=== PATIENT | male | born 1935 | race Caucasian/White ===

== ENCOUNTER 2016-11-08 10:55 | Day surgery (SDC) | payer MEDICARE ==
[~2016-11-08 10:55] MED LIST: PRED5PAK PO; WARF-23 PO
[2016-11-08] MEDS ORDERED: LACTATED RINGER'S 1000 ML IV SCH (11:45)
[2016-11-08] MEDS ORDERED: INSULIN HUMAN REGULAR 1,000 UNITS/10 ML VIAL SQ PRN (11:45)
[2016-11-08] MEDS ORDERED: SODIUM CHLORID 0.9% 500 ML IV SCH (11:45)
[2016-11-08] MEDS ORDERED: METOPROLOL TARTRATE 25 MG TAB PO PRN (11:45)
[2016-11-08] MEDS ORDERED: MULT400T PO (12:05)
--- NOTE | 2016-11-09 18:58 | EKG ---
Date Performed: 11/08/2016 Time Performed: 11:43:44 PTAGE: 81 years EKG: Probable atrial flutter. Left axis deviation IV conduction defect Possible septal infarct - age undetermined Lateral ST-T changes are nonspecific Poor R wave progression. Abnormal ECG NO PREVIOUS TRACING DOCTOR: Chris Guzman Interpretating Date/Time 11/09/2016 18:57:11
--- NOTE | 2016-11-09 19:00 | EKG ---
Date Performed: 11/08/2016 Time Performed: 14:46:24 PTAGE: 81 years EKG: Sinus rhythm with 1st degree A-V block Consider left atrial abnormality Left axis deviation IV conduction defect Possible septal infarct - age undetermined Lateral ST-T changes are nonspecific When compared to prev ious tracing, rate has changed from Probable atrial flutter to sinus rhythm. Abnormal ECG PREVIOUS TRACING : 11/08/2016 11.43 DOCTOR: Chris Guzman Interpretating Date/Time 11/09/2016 18:58:16
--- NOTE | 2016-11-10 08:20 | MP ---
cc: ADAMARIS POOL HUMAYUN A. M.D. DATE OF SURGERY: 11/08/2016 PROCEDURE: Transesophageal echo INDICATION 1. Mitral regurgitation 2. Rule out left atrial appendage thrombus. 3. Plan for atrial flutter, cardioversion. CONSENT A full informed consent was obtained prior to the procedure. The risks of , bleeding, perforation, aspiration, hemothorax, foreseen and unforeseen complications were reviewed. The patient fully appeared to understand the risks. PROCEDURE The patient was prepped and draped in the usual manner. The patient was anesthetized per the anesthesia department. A full ROLA was performed. FINDINGS 1. The LV function was normal. 2. The interatrial septum is intact. 3. The mitral valve moved normally. There was evidence of 2 to 3+ mitral regurgitation. 4. Tricuspid valve moves normally. 5. The left atrial appendage was free of thrombus. 6. The aorta was visualized to 40 cm with mild plaquing. CONCLUSION No evidence of left atrial appendage thrombus. No evidence of significant thrombus. PLAN Proceed with cardioversion. Alvin Vogt MD, FRCP,FACC JOS/JACK /2:18 PM /8:11 AM
--- NOTE | 2016-11-10 08:24 | MR ---
cc: ALVIN VOGT M.D., JOSE R. M.D. DATE: 11/08/2016 PROCEDURE Cardioversion. INDICATION Atrial flutter. CONSENT Full informed consent was obtained prior to the procedure. The risk of , bleeding, cardiac arrest, foreseen and unforeseen complications were reviewed. The patient appeared to understand the risks. PROCEDURE The patient was prepped and draped in the usual manner. A full ROLA was performed. Following the ROLA the patient received a 50 joules shock which was synchronized and this converted into sinus rhythm. CONCLUSION Successful cardioversion of atrial flutter to sinus rhythm with 50 joules synchronized shock. Alvin Vogt MD, FRCP,[facility] HAJ/TLL /2:20 PM /8:13 AM
== END 2016-11-08 15:25 | disposition home or self-care (01) ==
LOC: HDOC 10:55 → HDIC 10:57 → HDOC 15:25
PROVIDERS: ATTEND Internal Medicine Cardiovascular Disease
DX: I48.92 Unspecified atrial flutter (principal); I34.0 Nonrheumatic mitral (valve) insufficiency
CPT/HCPCS: 92960; 93005; 93312; 93320; 93325

== ENCOUNTER 2017-01-15 11:44 | Inpatient (IN) | payer MEDICARE ==
[~2017-01-15] VITALS: Ht 177.8 cm; Wt 91.8 kg
[2017-01-15] VITALS (8 sets, daily range): BP systolic 122–160; BP diastolic 66–108; PULSE 88–128; RESP 20–22; TEMP 97.4–98.3; O2SAT 95–98
[~2017-01-15 11:44] MED LIST changes: +MULT400T PO
--- NOTE | 2017-01-15 11:50 | PD ---
Physical Exam Date Seen by Provider: January 15, 2017 Time Seen by Provider: 11:48 Narrative 81 year old male presents to the emergency department for evaluation of left sided chest pain and shortness of breath that started 1 week ago. He has history of cardiac bypass surgery. He was sent by Dr. Vogt's office for evaluation. Vital signs reviewed. Patient awaiting bed placement. Data Data Last Documented VS Vital Signs Date Time Temp Pulse Resp B/P Pulse Ox O2 Delivery O2 Flow Rate FiO2 01/15/17 11:47 97.4 107 20 146/68 97 MDM Supervised Visit with GAIL: Varsha Bustamante January 15, 2017 11:50
[2017-01-15] MEDS ORDERED: SODIUM CHLORIDE 0.9% FLUSH 10 ML FLUSH IVF PRN (12:00)
[2017-01-15] MEDS ORDERED: PRED10 PO (12:07)
[2017-01-15] MEDS ORDERED: JANT5TAB PO (12:07)
[2017-01-15] MEDS ORDERED: CART120C PO (12:07)
[2017-01-15] MEDS ORDERED: METO-309 PO (12:07)
[2017-01-15 12:26] LABS: AUTOMATED NEUTROPHIL # 6.2 TH/MM3 (1.8-7.7); BASOPHIL % 0.5 % (0.0-2.0); EOSINOPHIL % 0.3 % (0.0-4.0); HEMATOCRIT 46.7 % (39.0-51.0); LYMPH % 5.7 % (9.0-44.0); LYMPHOCYTE # 0.4 TH/MM3 (1.0-4.8); MEAN CELL VOLUME 89.3 FL (80.0-100.0); MEAN CORPUSCULAR HEMOGLOBIN 28.7 PG (27.0-34.0); MEAN CORPUSCULAR HGB CONC 32.1 % (32.0-36.0); MONO % 8.4 % (0.0-8.0); NEUT % 85.1 % (16.0-70.0); PLATELET COUNT 88 TH/MM3 (150-450); RED BLOOD COUNT 5.23 MIL/MM3 (4.50-5.90); RED CELL DISTRIBUTION WIDTH 14.9 % (11.6-17.2); WHITE BLOOD COUNT 7.3 TH/MM3 (4.0-11.0)
--- NOTE | 2017-01-15 12:26 | PD ---
HPI Chief Complaint: Cardiac Complaint Time Seen by Provider: 12:05 Travel History International Travel<30 days: No Contact w/Intl Traveler<30days: No Traveled to known affect area: No History of Present Illness HPI 81-year-old male with history of HTN, CAD S/P bypass 2014 ON [place] presents to the ED by private vehicle for evaluation of 1 week history of intermittent chest pain and worsening shortness of breath. The patient states the chest pain is sharp, left sided, intermittent, worsened by lying down. He denies accompanying palpitations, diaphoresis, nausea or vomiting. Patient endorses worsening shortness of breath over one week. States that it became "very bad" yesterday. He states that chopping vegetables caused him to become SOB and have to rest. He endorses intermittent cough, productive of yellowish sputum. He denies fever, chills. He's been treating by using his rescue inhaler more frequently with no improvement of symptoms. The patient was seen by his perforator operator Dr. Vogt and instructed to present to the ED for evaluation. PFSH Past Medical History Hx Anticoagulant Therapy: Yes Atrial Fibrillation: Yes Cardiovascular Problems: Yes Diminished Hearing: No Hypertension: Yes Medical other: Yes (chronic skin rash) Respiratory: Yes Influenza Vaccination: Yes Past Surgical History Coronary Artery Bypass Graft: Yes Social History Alcohol Use: No (QUIT DRINKING 2 VODKA DAILY IN June,) Tobacco Use: No Substance Use: No Allergies-Medications (Allergen,Severity, Reaction): Coded Allergies: Iodine (Verified Allergy, Mild, RASH, 01/15/17) Shrimp (Verified Allergy, Mild, RASH, 01/15/17) Reported Meds & Prescriptions Reported Meds & Active Scripts Active Reported Prednisone 10 Mg Tab 10 Mg PO DAILY Cartia Xt (Diltiazem ER 24 HR) 120 Mg Caper 120 Mg PO DAILY Jantoven (Warfarin) 5 Mg Tab 5 Mg PO DAILY Lopressor (Metoprolol Tartrate) 50 Mg Tab 25 Mg PO BID Multaq (Dronedarone) 400 Mg Tab 400 Mg PO BID Review of Systems Except as stated in HPI: all other systems reviewed are Neg Physical Exam Narrative GENERAL: Well-nourished, well-developed, obese white male in no acute distress. SKIN: Focused skin assessment warm/dry. Well healed scar in the midline chest. Patchy, erythematous, maculopapular rash over the abdomen. HEAD: Normocephalic. EYES: No scleral icterus. No injection or drainage. NECK: Supple, trachea midline. No JVD or lymphadenopathy. CARDIOVASCULAR: Irregularly irregular rate and rhythm without murmurs, gallops, or rubs. 2+ DP and radial pulses bilaterally. RESPIRATORY: Breath sounds clear and equal bilaterally. No accessory muscle use. GASTROINTESTINAL: Abdomen soft, non-tender, nondistended. Active bowel sounds. MUSCULOSKELETAL: No cyanosis, or edema. Negative Hohmann sign bilaterally. BACK: Nontender without obvious deformity. No CVA tenderness. Data Data Last Documented VS Vital Signs Date Time Temp Pulse Resp B/P Pulse Ox O2 Delivery O2 Flow Rate FiO2 01/15/17 11:57 98 Room Air 01/15/17 11:56 98.3 94 22 160/93 Orders Complete Blood Count With Diff (01/15/17 11:53) Comprehensive Metabolic Panel (01/15/17 11:53) B-Type Natriuretic Peptide (01/15/17 11:53) Act Partial Throm Time (Ptt) (01/15/17 11:53) Prothrombin Time / Inr (Pt) (01/15/17 11:53) Ckmb (Isoenzyme) Profile (01/15/17 11:53) Troponin I (01/15/17 11:53) Iv Access Insert/Monitor (01/15/17 11:53) Electrocardiogram (01/15/17 11:53) Ecg Monitoring (01/15/17 11:53) Oximetry (01/15/17 11:53) Oxygen Administration (01/15/17 11:53) Chest, Single Ap (01/15/17 11:53) Sodium Chloride 0.9% Flush (Ns Flush) (01/15/17 12:00) CKMB (01/15/17 12:05) CKMB% (01/15/17 12:05) Ventilation & Perfusion Scan (01/15/17 ) Admit Order (Ed Use Only) (01/15/17 13:27) Labs Laboratory Tests Test 01/15/17 12:05 White Blood Count 7.3 TH/MM3 Red Blood Count 5.23 MIL/MM3 Hemoglobin 15.0 GM/DL Hematocrit 46.7 % Mean Corpuscular Volume 89.3 FL Mean Corpuscular Hemoglobin 28.7 PG Mean Corpuscular Hemoglobin 32.1 % Concent Red Cell Distribution Width 14.9 % Platelet Count 88 TH/MM3 Mean Platelet Volume 10.2 FL Neutrophils (%) (Auto) 85.1 % Lymphocytes (%) (Auto) 5.7 % Monocytes (%) (Auto) 8.4 % Eosinophils (%) (Auto) 0.3 % Basophils (%) (Auto) 0.5 % Neutrophils # (Auto) 6.2 TH/MM3 Lymphocytes # (Auto) 0.4 TH/MM3 Monocytes # (Auto) 0.6 TH/MM3 Eosinophils # (Auto) 0.0 TH/MM3 Basophils # (Auto) 0.0 TH/MM3 CBC Comment AUTO DIFF Differential Comment AUTO DIFF CONFIRMED Platelet Estimate LOW Platelet Morphology Comment NORMAL Prothrombin Time 25.6 SEC Prothromb Time International 2.2 RATIO Ratio Activated Partial 32.3 SEC Thromboplast Time Sodium Level 137 MEQ/L Potassium Level 4.2 MEQ/L Chloride Level 101 MEQ/L Carbon Dioxide Level 24.5 MEQ/L Anion Gap 12 MEQ/L Blood Urea Nitrogen 16 MG/DL Creatinine 1.28 MG/DL Estimat Glomerular Filtration 54 ML/MIN Rate Random Glucose 115 MG/DL Calcium Level 9.3 MG/DL Total Bilirubin 1.5 MG/DL Aspartate Amino Transf 49 U/L (AST/SGOT) Alanine Aminotransferase 68 U/L (ALT/SGPT) Alkaline Phosphatase 82 U/L Total Creatine Kinase 132 U/L Creatine Kinase MB 4.4 NG/ML Troponin I 0.11 NG/ML B-Type Natriuretic Peptide 341 PG/ML Total Protein 7.8 GM/DL Albumin 4.0 GM/DL MDM Medical Decision Making Medical Screen Exam Complete: Yes Emergency Medical Condition: Yes Medical Record Reviewed: Yes Differential Diagnosis PE versus ACS versus pneumonia versus CHF versus other Narrative Course 81-year-old male with history of HTN, CAD S/P bypass 2014, A flutter with cardioversion on 11/08/16 [place] presents to the ED by private vehicle for evaluation of 1 week history of intermittent chest pain and worsening shortness of breath. The patient states the chest pain is sharp, left sided, intermittent , worsened by lying down. He denies accompanying palpitations, diaphoresis, nausea or vomiting. Patient endorses worsening shortness of breath over one week. States that it became "very bad" yesterday. He states that chopping vegetables caused him to become SOB and have to rest. He endorses intermittent cough, productive of yellowish sputum. He denies fever, chills. The patient was seen today by Dr. Vogt and instructed to present to the ED for evaluation. Vitals reviewed. Pulse 107, respiratory rate 20, saturation 97% on room air on presentation. Physical exam reveals an obese white male with some increased work of breathing but otherwise in no acute distress. There is a patchy maculopapular rash on the abdomen, patient is currently treating with diet modifications and steroids. Irregularly irregular rate with no appreciable M/R/G. Chest CTAB. No lower extremity edema. Homans sign negative bilaterally. IV was established. Patient was placed on continuous monitoring. EKG: rate 93, A. fib, LAD, Q waves in V1 and V2, similar to previous EKG of . Reviewed by Dr. Nair CXR: Cardiomegaly and mild CHF. Cardiac enzymes CK-MB 4.4. Troponin 0.11. CBC: WBC 7.3. Hemoglobin 15.0. CMP: Potassium 4.2. INR 2.2. BNP: 341. Patient was administered 40 mg Lasix IV. This is mild failure with elevated cardiac enzymes. He is allergic to iodine, VQ scan pending to rule out PE. Call placed to the [facility] Hospitalist. I spoke with Dr. Randle who agrees to accept the patient to the medicine service. Please see medicine and cardiac notes for disposition. Diagnosis Primary Impression: CHF (congestive heart failure) Qualified Code: I50.9 - Acute congestive heart failure, unspecified congestive heart failure type Additional Impression: Cardiac enzymes elevated Lorie Fraire January 15, 2017 12:25
[2017-01-15 12:28] LABS: APTT (PATIENT) 32.3 SEC (24.3-30.1); INTERNATIONAL NORMALIZED RATIO 2.2 RATIO; PROTHROMBIN TIME - PATIENT 25.6 SEC (9.8-11.6)
[2017-01-15 12:29] LABS: HEMO FLAGS AUTO DIFF
--- NOTE | 2017-01-15 12:29 | RADRPT ---
EXAM DATE/TIME: 01/15/2017 11:59 [facility] COMPARISON: No previous studies available for comparison. INDICATIONS : Left side chest pain and shortness of breath for 1 week. MEDICAL HISTORY : Cardiovascular disease. Anticoagulant therapy. SURGICAL HISTORY : CABG. Coronary artery stent. ENCOUNTER: Initial ACUITY: 1 week PAIN SCORE: 6/10 LOCATION: Left chest FINDINGS: Sternal wires from previous median sternotomy are noted. The heart is enlarged. Mild interstitial e jeffrey is present. There is no alveolar consolidation, pleural effusion or pneumothorax. CONCLUSION: Cardiomegaly with mild congestive failure. Ras Chavez MD FACR on January 15, 2017 at 12:20 Board Certified Radiologist. This report was verified electronically.
[2017-01-15 12:42] LABS: ANION GAP 12 MEQ/L (5-15); AST (GOT) 49 U/L (15-37); BICARBONATE 24.5 MEQ/L (21.0-32.0); BLOOD UREA NITROGEN 16 MG/DL (7-18); CHLORIDE 101 MEQ/L (98-107); GLOMERULAR FILTRATION RATE 54 ML/MIN (>89); POTASSIUM 4.2 MEQ/L (3.5-5.1); SODIUM (NA) 137 MEQ/L (136-145)
[2017-01-15 12:47] LABS: ALKALINE PHOSPHATASE 82 U/L (45-117); ALT (GPT) 68 U/L (12-78); CREATINE KINASE 132 U/L (39-308); TOTAL BILIRUBIN ADULT 1.5 MG/DL (0.2-1.0)
[2017-01-15 12:59] LABS: CKMB 4.4 NG/ML (0.5-3.6)
[2017-01-15 13:00] LABS: PLATELET ESTIMATE SMEAR LOW (NORMAL); PLATELET MORPHOLOGY NORMAL (NORMAL); SCAN/DIFF AUTO DIFF CONFIRMED
[2017-01-15] MEDS ORDERED: SODIUM CHLORIDE 0.9% FLUSH 10 ML FLUSH IV FLUSH PRN (14:00)
--- NOTE | 2017-01-15 15:54 | RADRPT ---
EXAM DATE/TIME: 01/15/2017 15:00 [facility] COMPARISON: No previous studies available for comparison. INDICATIONS : Left chest pain with dyspnea. DOSE: 1.1 mCi Tc99m MAA IV 32 mCi Tc99m DTPA aerosol MEDICAL HISTORY : Hypertension. Atrial fibrillation. SURGICAL HISTORY : CABG Carotid endarterectomy. Coronary artery stent. ENCOUNTER: Initial ACUITY: 1 week PAIN SCALE: 3/10 LOCATION: Left chest TECHNIQUE: Following five minutes of tidal breathing of DTPA aerosol, planar images of the lungs were performed in eight projections. The patient was then injected with MAA, and eight-view perfusion scan was perf ormed. FINDINGS: There is moderate central airway deposition of aerosolized tracer. The perfusion lung scan demonstrates a homogenous pattern of uptake in both lungs. No segmental or s ubsegmental defects are seen. CONCLUSION: Low probability for pulmonary embolism. Marked central airway tracer deposition sugg esting ventilatory defect. Ras Chavez MD FACR on January 15, 2017 at 15:51 Board Certified Radiologist. This report was verified electronically.
[2017-01-15] MEDS ORDERED: WARFARIN SOD 5 MG TAB PO SCH (16:00)
--- NOTE | 2017-01-15 16:30 | MH ---
cc: ALONDRA RANDLE DATE OF ADMISSION 01/15/2017 DATE OF [address] Alondra Randle. PRIMARY CARE PHYSICIAN Dr. Benavidez. REASON FOR ADMISSION Shortness of breath. HISTORY OF THE PRESENT ILLNESS The patient is very pleasant 81-year-old male with significant past medical history of hypertension, CAD status post bypass 2014, also history of atrial fibrillation on Coumadin. As per patient and the patient's the patient has shortness of breath for the past few days. He has had intermittent chest pain from about one week. His shortness of breath is getting worse. Chest pain is kind of mild to moderate in intensity, sharp type left-sided without any associated symptoms. It is intermittent and nonradiating. His shortness of breath is also from approximately 5-7 days and it is getting worse. And whenever he tries to walk around it gets worse. When sitting down and laying it is better. Even some exception is causing his shortness of breath. He has occasional cough with yellowish kind of sputum. But there is no blood in it. He has no fever, no chills. No nausea or vomiting. There is no back pain or any abdominal pain. Denies any dizziness or lightheadedness. The patient denies any other associated symptoms. The patient went to his clinical research specialist this morning. Because of the symptomatology clinical research specialist advised him to go to the ER. In the ER he was evaluated by the ER PA and recommended for admission because of the acute congestive heart failure with atrial fibrillation and at times rapid ventricular rate. PAST MEDICAL HISTORY Significant for: 1. CAD. 2. Hypertension. 3. Status post bypass. 4. Atrial fibrillation / flutter on Coumadin. MEDICATIONS Reviewed. Please see the EMR. ALLERGIES THE PATIENT IS ALLERGIC TO IODINE AND SHRIMP. REVIEW OF SYSTEMS As described above in the history of present illness, otherwise negative for 10 systems. SOCIAL HISTORY The patient quit drinking last year. Does not smoke or do any drugs. FAMILY HISTORY Noncontributory. PHYSICAL EXAMINATION GENERAL: The patient is alert and oriented, overweight, lying on bed without any apparent distress. VITAL SIGNS: Show the patient afebrile. During his examination the patient's heart rate fluctuated from 90s to 130s. Respiratory rate 22, blood pressure was 160/93, pulse oximetry was 98% on room air. HEENT: Head is atraumatic, normocephalic. Eyes, negative conjunctival icterus. Mouth unremarkable. NECK: Supple. The patient is sitting more than 45 degree angle and unable to appreciate JVD because of thick neck. Central trachea. CHEST: Some slight decreased air entry bibasilarly with occasional fine rhonchi, otherwise no wheezing noted. CARDIOVASCULAR: S1-S2 audible. Unable to appreciate any gallop. ABDOMEN: Soft, nontender, no organomegaly. Positive bowel sounds. MUSCULOSKELETAL: No cyanosis noted. There is a trace pedal edema. CENTRAL NERVOUS SYSTEM: Grossly intact. SKIN: Warm and dry. PSYCHIATRIC: Appropriate mood and affect. LABORATORY DATA Investigations, WBC and hematocrit within normal limits. Platelet count is 88. PT is 25.6, INR 2.2, APTT 32.3. Chemistry shows estimated GFR 54, random glucose 115, total bilirubin 1.5, AST 49. CK-MB 4.4. Troponin 0.11. B-type natriuretic peptide is 341. IMAGING Chest x-ray was done. Report showed cardiomegaly with mild CHF. No EKGs available. ASSESSMENT 1. Shortness of breath with some coughing, likely pulmonary edema / CHF acute type. 2. Atrial fibrillation / flutter with at times increased heart rate, rapid ventricular rate. 3. Hypertension. 4. CAD status post CABG in the past. PLAN Admit to the floor. Tele. Diuretics. D-dimer stat. Cardiology consult. Continue home medication as indicated. Follow PT/INR. Pharmacy consult to manage Coumadin and PT/INR. Discussed with Dr. Vogt. Discussed with RN. Discussed with the patient and family at the bedside. Further recommendation to follow as the patient progresses. Condition guarded. ADDENDUM Low platelets, we will monitor. Increased troponin, plan for serial troponin. GI prophylaxis and DVT prophylaxis with Coumadin. Alondra Randle MD JP/LINDA /3:34 PM /3:55 PM
[2017-01-15] MEDS: FUROSEMIDE 20 MG/2 ML VIAL IV PUSH SCH (17:26)
[2017-01-15] MEDS: SODIUM CHLORIDE 0.9% FLUSH 10 ML FLUSH IV FLUSH SCH (20:44)
[2017-01-15] MEDS: FAMOTIDINE 20 MG TAB PO SCH (20:44)
[2017-01-15] MEDS: METOPROLOL TARTRATE 25 MG TAB PO SCH (20:44)
[2017-01-15] MEDS: DRONEDARONE 400 MG TAB PO SCH (20:45)
--- NOTE | 2017-01-15 22:40 | MB ---
cc: ALVIN VOGT M.D., JOSE R. M.D. DATE OF CONSULTATION 01/15/2017 REASON FOR CONSULTATION Thank you Dr. Randle for asking us to see this very pleasant 81-year-old male who presents with atrial fibrillation. He is currently on Coumadin. He presents with increasing shortness of breath on exertion and intermittent chest pain. He had sharp pain, left-sided, which is worse with taking a deep breath. He has been ruled out for pulmonary embolism or pneumonia. He is feeling better after he got diuresis. PAST MEDICAL HISTORY Positive for: 1. Hypertension. 2. Coronary artery disease status post bypass. 3. Atrial fibrillation with flutter. MEDICATIONS At this time include: 1. Diltiazem. 2. Prednisone. 3. Sodium chloride 4. Multaq. 5. Metoprolol. 6. Famotadine. 7. Furosemide. 8. Warfarin. ALLERGIES ALLERGIC TO IODONE. REVIEW OF SYSTEMS Denies seizure, headache, vomiting, diarrhea, dysuria and hematuria. The remainder of the 12 point review of systems is negative. SOCIAL HISTORY Quit alcohol drinking last year. Does not smoke or abuse drugs. FAMILY HISTORY Noncontributory. REVIEW OF SYSTEMS Positive for shortness of breath and above. The remainder of a 12 point review of systems is negative. PHYSICAL EXAMINATION VITAL SIGNS: Pulse was 107, respiratory rate 20, blood pressure 140/68. HEENT: Eyes show no xanthelasma. Mouth shows no cyanosis or pallor. NECK: Showed no JVD. HEART: He had two heart sounds. No murmurs. CHEST: Showed decreased air entry with wheezes and scattered rales. ABDOMEN: Soft. EXTREMITIES: Legs reveal no evidence of edema. NEUROLOGIC: . LABORATORY DATA EKG showed A fib with rapid ventricular response. INR 2.2. PT 25.6. Troponin 0.011. BNP was elevated at 341. IMAGING A chest x-ray showed mild congestive heart failure. Lung V/Q scan was low probability for pulmonary embolism. ASSESSMENT/PLAN 1. 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 2. He will be discharged in the next day or two once stable. I will follow him up in my office on an outpatient basis. Thank you Dr. Randle for asking us to see this very pleasant gentleman. Alvin Vogt MD, FRCP,[facility] HAJ/KK /6:28 PM /10:21 PM [facility]
[2017-01-16] VITALS (7 sets, daily range): BP systolic 120–140; BP diastolic 61–80; PULSE 60–108; RESP 19–21; TEMP 97.4–98.1; O2SAT 94–96
[2017-01-16 06:25] LABS: INTERNATIONAL NORMALIZED RATIO 2.5 RATIO; PROTHROMBIN TIME - PATIENT 28.4 SEC (9.8-11.6)
[2017-01-16 06:53] LABS: POTASSIUM 3.5 MEQ/L (3.5-5.1)
[2017-01-16] MEDS: RESP: ALBUTEROL 2.5 MG/3 ML NEB (SCH) INH ×3 (07:53→20:00)
[2017-01-16] MEDS ORDERED: predniSONE 10 MG TAB PO SCH (09:00)
[2017-01-16] MEDS: METOPROLOL TARTRATE 25 MG TAB PO SCH ×2 (09:32→20:18)
[2017-01-16] MEDS: FAMOTIDINE 20 MG TAB PO SCH ×2 (09:32→20:18)
[2017-01-16] MEDS: DILTIAZEM-CD 120 MG CAP ER PO SCH (09:32)
[2017-01-16] MEDS: DRONEDARONE 400 MG TAB PO SCH (09:32)
[2017-01-16] MEDS: FUROSEMIDE 20 MG/2 ML VIAL IV PUSH SCH ×2 (09:34→17:47)
[2017-01-16] MEDS: SODIUM CHLORIDE 0.9% FLUSH 10 ML FLUSH IV FLUSH SCH ×2 (09:35→20:19)
--- NOTE | 2017-01-16 12:35 | HHI.PR ---
Subjective Subjective Remarks sob improved, still with QUINONEZ no cp diuresing well no fever (Pat Garay) Review of Systems Constitutional Constitutional Remarks 12 point ROS completed, negative except as noted above (Pat Garay) Vitals/Results Intake & Output 01/15/17 01/15/17 01/16/17 15:00 23:00 07:00 Intake Total 480 ml Output Total 1600 ml Balance -1120 ml Intake Oral 480 ml Output Urine Total 1600 ml # Voids 1 # Bowel Movements 0 Vital Signs Vital Signs Date Time Temp Pulse Resp B/P Pulse Ox O2 Delivery O2 Flow Rate FiO2 01/16/17 11:50 108 01/16/17 08:00 98.1 94 20 134/61 95 01/16/17 07:15 Room Air 01/16/17 05:51 97.4 64 21 122/69 95 01/16/17 00:14 97.5 60 19 120/80 96 01/15/17 20:33 98.1 120 21 122/66 95 01/15/17 20:00 Room Air 01/15/17 20:00 128 01/15/17 19:47 132/82 01/15/17 18:05 Room Air 01/15/17 16:58 97.9 88 20 149/92 96 01/15/17 16:23 97 20 142/108 96 Room Air (Pat Garay) CBC/BMP: 01/15/17 1205 01/16/17 0515 Lab Results Laboratory Tests Test 01/15/17 01/16/17 01/16/17 18:40 02:10 05:15 Troponin I 0.12 NG/ML 0.15 NG/ML Prothrombin Time 28.4 SEC Prothromb Time International 2.5 RATIO Ratio Sodium Level 139 MEQ/L Potassium Level 3.5 MEQ/L Chloride Level 103 MEQ/L Carbon Dioxide Level 26.0 MEQ/L Anion Gap 10 MEQ/L Blood Urea Nitrogen 16 MG/DL Creatinine 1.15 MG/DL Estimat Glomerular Filtration 61 ML/MIN Rate Random Glucose 79 MG/DL Calcium Level 8.5 MG/DL (Pat Garay) Physical Exam General General Appearance: Well Developed, Well Nourished, No Acute Distress, Comfortable (Pat Garay) Eyes Eye Exam: Pupils Equal, Pupils Reactive (Pat GarayP) Ears & Nose Ears & Nose Exam: Nasal Mucosa [place] (Pat Garay STUDIO RECEPTIONIST) Throat Throat Exam: Oral Mucosa [place] & Moist (Pat Garay STUDIO RECEPTIONIST) Neck Neck Exam: Neck Supple, Trachea Midline (Pat Garay STUDIO RECEPTIONIST) Pulmonary Resp Exam: Breath Sounds Equal, Decreased Bases (Pat Garay STUDIO RECEPTIONIST) Cardiology CV Exam: Regular, Good Perfusion (Pat GarayP) Gastrointestinal/Abdomen GI Exam: Soft, Non-Tender, Bowel Sounds Present, Non-Distended (Pat GarayP) Musculoskeletal MS Exam: Joints Intact (Pat Garay) Integumentary Skin Exam: Warm, Dry (Pat Garay) Extremeties Extremities Exam: No Edema, Pedal Pulses Palpable (Pat Garay) Neurologic Neuro Exam: Alert, Awake, Oriented, Speech Clear, Moving All Extremities, No Focal Deficits (Pat GarayP) Psychiatric Psych Exam: Appropriate Responses (Pat Garay) VTE Prophylaxis VTE Prophylaxis Meds: Coumadin (Pat Garay) Assessment/Plan Problem List: (1) CHF (congestive heart failure) (2) Cardiac enzymes elevated (3) Atrial fibrillation (4) HTN (hypertension) (5) Peripheral neuropathy (6) Rash (7) CAD (coronary artery disease) Assessment/Plan appreciate cardiology input cardiac enzymes indeterminate continue Lasix 20 mg IV BID, diuresing well continue CCB and BB dc Multaq no longer taking continue Coumadin INR therapeutic continuous telemetry Low platelets, monitor no bleeding on chronic steroids x 2 months for rash dec. Prednisone to 5 mg po daily Replace K, add daily dose Poss dc tomorrow D/W RN D/W Dr. Randle D/W pt This patient was seen by myself and Dr. Randle, this note is written on his behalf. (Pat Garay) Assessment/Plan Patient seen and examined as above Labs and medications and previous notes reviewed Discussed with STUDIO RECEPTIONIST about about plan of care Discussed with patient and at bedside Appreciate consultants help Discussed with RN (Indira Randle MD) Problem Qualifiers (1) CHF (congestive heart failure): Qualified Code: I50.9 - Acute congestive heart failure, unspecified congestive heart failure type (2) Atrial fibrillation: Qualified Code: I48.2 - Chronic atrial fibrillation (3) HTN (hypertension): Qualified Code: I10 - Essential hypertension (4) Peripheral neuropathy: Qualified Code: G62.9 - Peripheral polyneuropathy (5) CAD (coronary artery disease): Qualified Code: I25.10 - Coronary artery disease involving [place] coronary artery of [place] heart without angina pectoris Pat Garay January 16, 2017 12:35 Indira Randle MD January 16, 2017 15:42
--- NOTE | 2017-01-16 13:44 | PD.CARD.PN ---
Subjective Subjective Remarks Better but still somewhat sob Objective Medications Administered Medications Medications (Trade) Dose Ordered Sig/Belinda Route PRN Reason Start Time Stop Time Status Last Admin Dose Admin Sodium Chloride (NS Flush) 2 ml BID IV FLUSH 01/15/17 21:00 01/16/17 09:35 Furosemide (Lasix Inj) 20 mg BID@,18 IV PUSH 01/15/17 18:00 01/16/17 09:34 Diltiazem HCl (Cardizem Cd) 120 mg DAILY PO 01/16/17 09:00 01/16/17 09:32 Metoprolol Tartrate (Lopressor) 25 mg BID PO 01/15/17 21:00 01/16/17 09:32 Famotidine (Pepcid) 20 mg BID PO 01/15/17 21:00 01/16/17 09:32 Vital Signs / I&O Vital Signs Date Time Temp Pulse Resp B/P Pulse Ox O2 Delivery O2 Flow Rate FiO2 01/16/17 11:50 108 01/16/17 08:00 98.1 94 20 134/61 95 01/16/17 07:15 Room Air 01/16/17 05:51 97.4 64 21 122/69 95 01/16/17 00:14 97.5 60 19 120/80 96 01/15/17 20:33 98.1 120 21 122/66 95 01/15/17 20:00 Room Air 01/15/17 20:00 128 01/15/17 19:47 132/82 01/15/17 18:05 Room Air 01/15/17 16:58 97.9 88 20 149/92 96 01/15/17 16:23 97 20 142/108 96 Room Air I/O 01/15/17 01/15/17 01/15/17 01/16/17 01/16/17 01/16/17 07:00 15:00 23:00 07:00 15:00 23:00 Intake Total 480 ml Output Total 1600 ml Balance -1120 ml Intake Oral 480 ml Output Urine Total 1600 ml # Voids 1 # Bowel Movements 0 Physical Exam GENERAL: Well-nourished, well-developed patient in no apparent distress. SKIN: Warm and dry. NECK: JVD normal - less than or equal to 5 cm H20. CARDIOVASCULAR: Regular rate and rhythm without murmurs, gallops or rubs. RESPIRATORY: Normal breath sounds - equal bilaterally. No accessory muscle use. No wheezes, rales or rubs. PERIPHERY: No cyanosis or edema. Laboratory Laboratory Tests Test 01/15/17 01/16/17 01/16/17 18:40 02:10 05:15 Troponin I 0.12 NG/ML 0.15 NG/ML Prothrombin Time 28.4 SEC Prothromb Time International 2.5 RATIO Ratio Sodium Level 139 MEQ/L Potassium Level 3.5 MEQ/L Chloride Level 103 MEQ/L Carbon Dioxide Level 26.0 MEQ/L Anion Gap 10 MEQ/L Blood Urea Nitrogen 16 MG/DL Creatinine 1.15 MG/DL Estimat Glomerular Filtration 61 ML/MIN Rate Random Glucose 79 MG/DL Calcium Level 8.5 MG/DL Imaging Last 48 hours Impressions Chest X-Ray 01/15/17 1153 Signed Impressions: Service Date/Time: Sunday, January 15, 2017 11:59 - CONCLUSION: Cardiomegaly with mild congestive failure. Ras Chavez MD FACR Lung Scan-V Nuclear Medicine 01/15/17 0000 Signed Impressions: Service Date/Time: Sunday, January 15, 2017 15:00 - CONCLUSION: Low probability for pulmonary embolism. Marked central airway tracer deposition suggesting ventilatory defect. Ras Chavez MD FACR Assessment and Plan Assessment and Plan Slow improvement will d/c tomorrow or sat if better Alvin Vogt MD January 16, 2017 13:44
[2017-01-16] MEDS ORDERED: POTASSIUM CHLORIDE 25 MEQ EFFERVESCENT TAB PO ONE (15:00)
[2017-01-16] MEDS ORDERED: WARFARIN SOD 4 MG TAB PO SCH (16:00)
--- NOTE | 2017-01-16 16:08 | EKG ---
Date Performed: 01/15/2017 Time Performed: 11:57:09 PTAGE: 81 years EKG: ATRIAL FIBRILLATION MARKED LEFT AXIS DEVIATION INTRAVENTRICULAR CONDUCTION DELAY SEPTAL BRIAN CARDIAL INFARCTION ABNORMAL ECG PREVIOUS TRACING : 11/08/2016 14.46 Compared to previous tracing, the patient is now in atrial fibrillation. DOCTOR: Chris Guzman Interpretating Date/Time 01/16/2017 16:07:26
[2017-01-17] VITALS: BP 139/57; PULSE 96; RESP 20; TEMP 97.4; O2SAT 96
[2017-01-17 04:00] VITALS: BP 142/79; PULSE 87; RESP 20; TEMP 97.4; O2SAT 96
[2017-01-17 08:00] VITALS: BP 103/53; PULSE 98; RESP 20; TEMP 98; O2SAT 94
[2017-01-17] MEDS: RESP: ALBUTEROL 2.5 MG/3 ML NEB (SCH) INH ×2 (08:02→12:45)
[2017-01-17 08:15] VITALS: PULSE 86
[2017-01-17] MEDS ORDERED: predniSONE 5 MG TAB PO SCH (09:00)
[2017-01-17] MEDS ORDERED: POTASSIUM CHLORIDE 25 MEQ EFFERVESCENT TAB PO SCH (09:00)
[2017-01-17] MEDS: FAMOTIDINE 20 MG TAB PO SCH (09:09)
[2017-01-17] MEDS: METOPROLOL TARTRATE 25 MG TAB PO SCH (09:09)
[2017-01-17] MEDS: DILTIAZEM-CD 120 MG CAP ER PO SCH (09:09)
[2017-01-17] MEDS: FUROSEMIDE 20 MG/2 ML VIAL IV PUSH SCH (09:10)
[2017-01-17] MEDS: SODIUM CHLORIDE 0.9% FLUSH 10 ML FLUSH IV FLUSH SCH (09:12)
[2017-01-17 09:45] LABS: INTERNATIONAL NORMALIZED RATIO 2.6 RATIO; PROTHROMBIN TIME - PATIENT 29.5 SEC (9.8-11.6)
[2017-01-17] MEDS ORDERED: FURO1TAB62 PO ×2 (12:59→13:03)
[2017-01-17] MEDS ORDERED: PRED10 PO (12:59)
--- NOTE | 2017-01-17 12:59 | HHI.DCPOC ---
Discharge Care Plan Diagnosis: (1) CHF (congestive heart failure) (2) Peripheral neuropathy (3) HTN (hypertension) (4) Cardiac enzymes elevated Your Health Problems Are: Chest Pain Fluid/Lung Overload Shortness of Breath Goals to Promote Your Health * To prevent worsening of your condition and complications * To maintain your health at the optimal level Directions to Meet Your Goals Take your medications as prescribed Follow your dietary instruction Follow activity as directed Keep your appointments as scheduled Take your immunizations and boosters as scheduled If your symptoms worsen call your PCP, if no PCP go to Urgent Care Center or Emergency Room Smoking is Dangerous to Your Health. Avoid second hand smoke Call the 24-hour hour crisis hotline for domestic abuse at [facility]. [facility] January 17, 2017 12:59
--- NOTE | 2017-01-17 13:02 | HHI.PR ---
Subjective Subjective Remarks less QUINONEZ no cp no palpitations no fever Review of Systems Constitutional Constitutional Remarks 12 point ROS completed, negative except as noted above Vitals/Results Intake & Output 01/16/17 01/16/17 01/17/17 15:00 23:00 07:00 Intake Total 480 ml 120 ml Output Total 400 ml Balance 80 ml 120 ml Intake Oral 480 ml 120 ml Output Urine Total 400 ml # Voids 0 # Bowel Movements 0 Vital Signs Vital Signs Date Time Temp Pulse Resp B/P Pulse Ox O2 Delivery O2 Flow Rate FiO2 01/17/17 08:15 86 01/17/17 08:00 98.0 98 20 103/53 94 Manual Cuff/Auscultation 01/17/17 07:00 Room Air 01/17/17 04:00 97.4 87 20 142/79 96 01/17/17 00:00 97.4 96 20 139/57 96 01/17/17 00:00 Room Air 01/16/17 20:00 Room Air 01/16/17 20:00 89 01/16/17 20:00 97.9 82 20 140/75 96 01/16/17 16:00 97.9 85 20 94 Manual Cuff/Auscultation CBC/BMP: 01/15/17 1205 01/16/17 0515 Lab Results Laboratory Tests Test 01/17/17 09:08 Prothrombin Time 29.5 SEC Prothromb Time International 2.6 RATIO Ratio Physical Exam General General Appearance: Well Developed, Well Nourished, No Acute Distress, Comfortable Eyes Eye Exam: Pupils Equal, Pupils Reactive Ears & Nose Ears & Nose Exam: Nasal Mucosa [place] Throat Throat Exam: Oral Mucosa [place] & Moist Neck Neck Exam: Neck Supple, Trachea Midline Pulmonary Resp Exam: Breath Sounds Equal, Decreased Bases Cardiology CV Exam: Regular, Good Perfusion Gastrointestinal/Abdomen GI Exam: Soft, Non-Tender, Bowel Sounds Present, Non-Distended Musculoskeletal MS Exam: Joints Intact Integumentary Skin Exam: Warm, Dry Extremeties Extremities Exam: No Edema, Pedal Pulses Palpable Neurologic Neuro Exam: Alert, Awake, Oriented, Speech Clear, Moving All Extremities, No Focal Deficits Psychiatric Psych Exam: Appropriate Responses VTE Prophylaxis VTE Prophylaxis Meds: Coumadin Assessment/Plan Problem List: (1) CHF (congestive heart failure) (2) Cardiac enzymes elevated (3) Atrial fibrillation (4) HTN (hypertension) (5) Peripheral neuropathy (6) Rash (7) CAD (coronary artery disease) Assessment/Plan appreciate cardiology input cardiac enzymes indeterminate continue Lasix 20 mg IV BID, diuresing well continue CCB and BB dc Multaq no longer taking continue Coumadin INR therapeutic, 2.6 continuous telemetry Low platelets, monitor no bleeding on chronic steroids x 2 months for rash dec. Prednisone to 5 mg po daily-PCP to wean off rash resolving Stable, no longer SOB with activity Discharge home today F/U Dr. Vogt 2 weeks Diet-heart healthy Activity - as tolerated D/W RN D/W Dr. Randle D/W pt This patient was seen by myself and Dr. Randel, this note is written on his behalf. Discharge Minutes: 45 Problem Qualifiers (1) CHF (congestive heart failure): Qualified Code: I50.9 - Acute congestive heart failure, unspecified congestive heart failure type (2) Atrial fibrillation: Qualified Code: I48.2 - Chronic atrial fibrillation (3) HTN (hypertension): Qualified Code: I10 - Essential hypertension (4) Peripheral neuropathy: Qualified Code: G62.9 - Peripheral polyneuropathy (5) CAD (coronary artery disease): Qualified Code: I25.10 - Coronary artery disease involving [place] coronary artery of [place] heart without angina pectoris Pat Garay January 17, 2017 13:02
--- NOTE | 2017-01-17 13:05 | HHI.DS ---
Discharge Summary Admission Date January 15, 2017 at 13:28 Discharge Date: January 17, 2017 Admitting Diagnosis CHF, elevated cardiac enzymes (1) CHF (congestive heart failure) (2) Rash (3) CAD (coronary artery disease) (4) Atrial fibrillation (5) Peripheral neuropathy (6) HTN (hypertension) (7) Cardiac enzymes elevated CBC/BMP: 01/15/17 1205 01/16/17 0515 Significant Findings Laboratory Tests Test 01/15/17 01/15/17 01/16/17 01/16/17 12:05 18:40 02:10 05:15 Platelet Count 88 TH/MM3 (150-450) Neutrophils (%) (Auto) 85.1 % (16.0-70.0) Lymphocytes (%) (Auto) 5.7 % (9.0-44.0) Monocytes (%) (Auto) 8.4 % (0.0-8.0) Lymphocytes # (Auto) 0.4 TH/MM3 (1.0-4.8) Platelet Estimate LOW (NORMAL) Prothrombin Time 25.6 SEC 28.4 SEC (9.8-11.6) (9.8-11.6) Activated Partial 32.3 SEC Thromboplast Time (24.3-30.1) D-Dimer Quantitative (PE/DVT) 0.76 MG/L FEU (0.00-0.50) Estimat Glomerular Filtration 54 ML/MIN (>89) 61 ML/MIN (>89) Rate Random Glucose 115 MG/DL (74-106) Total Bilirubin 1.5 MG/DL (0.2-1.0) Aspartate Amino Transf 49 U/L (15-37) (AST/SGOT) Creatine Kinase MB 4.4 NG/ML (0.5-3.6) Troponin I 0.11 NG/ML 0.12 NG/ML 0.15 NG/ML (0.02-0.05) (0.02-0.05) (0.02-0.05) B-Type Natriuretic Peptide 341 PG/ML (0-100) Test 01/17/17 09:08 Prothrombin Time 29.5 SEC (9.8-11.6) Imaging Last Impressions Chest X-Ray 01/15/17 1153 Signed Impressions: Service Date/Time: Sunday, January 15, 2017 11:59 - CONCLUSION: Cardiomegaly with mild congestive failure. Ras Chavez MD FACR Lung Scan-VQ Nuclear Medicine 01/15/17 0000 Signed Impressions: Service Date/Time: Sunday, January 15, 2017 15:00 - CONCLUSION: Low probability for pulmonary embolism. Marked central airway tracer deposition suggesting ventilatory defect. Ras Chavez MD FACR Hospital Course The patient was very pleasant 81-year-old male with significant past medical history of hypertension, CAD status post bypass 2014, also history of atrial fibrillation on Coumadin. As per patient and the patient's the patient has shortness of breath for the past few days. He had intermittent chest pain from about one week. His shortness of breath is getting worse. Chest pain is kind of mild to moderate in intensity, sharp type left-sided without any associated symptoms. It is intermittent and nonradiating. His shortness of breath is also from approximately 5-7 days and it is getting worse. And whenever he tries to walk around it gets worse. When sitting down and laying it is better. Even some exception is causing his shortness of breath. He has occasional cough with yellowish kind of sputum. But there is no blood in it. He has no fever, no chills. No nausea or vomiting. There is no back pain or any abdominal pain. Denies any dizziness or lightheadedness. The patient denies any other associated symptoms. The patient went to his precipitation equipment tender this morning. Because of the symptomatology precipitation equipment tender advised him to go to the ER. In the ER he was evaluated by the ER PA and recommended for admission because of the acute congestive heart failure with atrial fibrillation and at times rapid ventricular rate. Evaluated in the ED: LABORATORY DATA Investigations, WBC and hematocrit within normal limits. Platelet count is 88. PT is 25.6, INR 2.2, APTT 32.3. Chemistry shows estimated GFR 54, random glucose 115, total bilirubin 1.5, AST 49. CK-MB 4.4. Troponin 0.11. B-type natriuretic peptide is 341. IMAGING Chest x-ray was done. Report showed cardiomegaly with mild CHF. No EKGs available. Pt admitted for: (1) CHF (congestive heart failure) (2) Cardiac enzymes elevated (3) Atrial fibrillation (4) HTN (hypertension) (5) Peripheral neuropathy (6) Rash (7) CAD (coronary artery disease) During the hospitalization, the following events took place: admitted, evaluated by cardiology Put on Lasix 20 mg IV BID, diuresing well continue CCB and BB dcd Multaq no longer taking continued Coumadin INR therapeutic, 2.6 continuous telemetry Low platelets, monitored no bleeding on chronic steroids x 2 months for rash dec. Prednisone to 5 mg po daily-PCP to wean off rash resolving Stable, no longer SOB with activity Discharged home today F/U Dr. Vogt 2 weeks Diet-heart healthy Activity - as tolerated Pt Condition on Discharge: Stable Discharge Disposition: Discharge Home Discharge Instructions DIET: Follow Instructions for: Heart Healthy Diet, Coumadin (Warfarin) Diet Activities you can perform: Weight Bearing as Tess Follow up Referrals: Cardiology with DR. VOGT New Medications: Furosemide (Lasix) 20 Mg Tab 20 MG PO DAILY FLUID OVERLOAD #7 Ref 0 TAB Changed Medications: Prednisone (Prednisone) 10 Mg Tab 5 MG PO DAILY Rash #30 Ref 0 TAB (Changed from: 10 MG) Continued Medications: Diltiazem ER 24 HR (Cartia Xt) 120 Mg Caper 120 MG PO DAILY #30 Ref 0 CAP Metoprolol Tartrate (Lopressor) 50 Mg Tab 25 MG PO BID #30 Ref 0 TAB Warfarin (Jantoven) 5 Mg Tab 5 MG PO DAILY Blood Clot Prevention #30 Ref 0 TAB Discontinued Medications: Dronedarone (Multaq) 400 Mg Tab 400 MG PO BID Regulate Heart Beat Ref 0 TAB Pat Garay January 17, 2017 13:05 on chronic steroids x 2 months for rash dec. Prednisone to 5 mg po daily-PCP to wean off rash resolving Stable, no longer SOB with activity Discharge home today F/U Dr. Vogt 2 weeks Diet-heart healthy Activity - as tolerated D/W RN D/W Dr. Randle D/W pt This patient was seen by myself and Dr. Randle, this note is written on his behalf. Pt Condition on Discharge: Stable Discharge Disposition: Discharge Home Discharge Instructions DIET: Follow Instructions for: Heart Healthy Diet, Coumadin (Warfarin) Diet Activities you can perform: Weight Bearing as Tess Follow up Referrals: Cardiology with DR. VOGT New Medications: Furosemide (Lasix) 20 Mg Tab 20 MG PO DAILY FLUID OVERLOAD #7 Ref 0 TAB Changed Medications: Prednisone (Prednisone) 10 Mg Tab 5 MG PO DAILY Rash #30 Ref 0 TAB (Changed from: 10 MG) Continued Medications: Diltiazem ER 24 HR (Cartia Xt) 120 Mg Caper 120 MG PO DAILY #30 Ref 0 CAP Metoprolol Tartrate (Lopressor) 50 Mg Tab 25 MG PO BID #30 Ref 0 TAB Warfarin (Jantoven) 5 Mg Tab 5 MG PO DAILY Blood Clot Prevention #30 Ref 0 TAB Discontinued Medications: Dronedarone (Multaq) 400 Mg Tab 400 MG PO BID Regulate Heart Beat Ref 0 TAB Pat Garay [employer] January 17, 2017 13:05
== END 2017-01-17 14:22 | disposition home or self-care (01) | DRG 292 ==
LOC: NEPC 11:44 → NEDA 13:28 → N04A 16:58
PROVIDERS: ADMIT Specialist; ATTEND Specialist
DX: I50.9 Heart failure, unspecified (principal); J44.9 Chronic obstructive pulmonary disease, unspecified; I48.92 Unspecified atrial flutter; I48.2 Chronic atrial fibrillation; D69.6 Thrombocytopenia, unspecified; G62.9 Polyneuropathy, unspecified; I25.10 Atherosclerotic heart disease of native coronary artery without angina pectoris; I10 Essential (primary) hypertension; E66.9 Obesity, unspecified; R74.8 Abnormal levels of other serum enzymes; Z95.1 Presence of aortocoronary bypass graft; Z91.041 Radiographic dye allergy status; R21 Rash and other nonspecific skin eruption; Z79.01 Long term (current) use of anticoagulants; Z79.52 Long term (current) use of systemic steroids
CPT/HCPCS: 71010; 78582; 80048; 80053; 82550; 82552; 83880; 84484; 85025; 85379; 85610; 85730; 93005; 94640; 94664; A9540; A9567; J1940; J7512; J7613